=== PATIENT | female | born 1965 | race Caucasian/White ===

== ENCOUNTER 2022-08-19 14:02 | Outpatient (CLI) | payer BC, SELFPAY ==
[2022-08-19 21:34] LABS: Albumin* 4.6 g/dL (3.3-5.0)
[2022-08-19 21:35] LABS: Chloride* 99 mmol/L (96-114); Potassium* 4.2 mmol/L (3.6-5.1); Sodium* 137 mmol/L (135-149)
[2022-08-19 21:37] LABS: Bilirubin Total* 0.3 mg/dL (0.1-1.5); Cholesterol* 264 mg/dL (90-199); Creatinine* 0.8 mg/dL (0.5-1.5); Estimated Glomerular Filt Rate 86 ml/min
[2022-08-19 21:38] LABS: Alanine Aminotransferase* 19 U/L (4-35); Alkaline Phosphatase* 132 U/L (40-150); Aspartate Amino Transferase* 25 U/L (12-35); Blood Urea Nitrogen* 26 mg/dL (7-30); Calcium* 9.9 mg/dL (8.4-10.6); Carbon Dioxide* 30 mmol/L (20-32); Glucose* 108 mg/dL (60-115); Total Protein* 7.6 g/dL (6.0-8.3); Triglycerides* 106 mg/dL (40-149)
[2022-08-19 21:39] LABS: HDL Cholesterol* 106 mg/dL (>=50); LDL Cholesterol Calculated 137 mg/dL (<100)
== END 2022-08-19 14:03 | disposition home or self-care (01) ==
PROVIDERS: PCP Family Medicine; Visit Provider Family Medicine
DX: I10 Essential (primary) hypertension (principal); I16.0 Hypertensive urgency; E78.5 Hyperlipidemia, unspecified; F32.A Depression, unspecified; R73.9 Hyperglycemia, unspecified
CPT/HCPCS: 80053; 80061; 83036; 84443

== ENCOUNTER 2022-11-04 10:11 | Outpatient (CLI) | payer BC, SELFPAY ==
--- NOTE | 2022-11-04 10:15 | CRLHL7_ITS ---
For Patients: As a result of the Century Cures Act, medical imaging exams and procedure reports are released immediately into your electronic medical record. You may view this report before your referring provider. If you have questions, please contact your health care provider. BILATERAL SCREENING MAMMOGRAM WITH COMPUTER-AIDED DETECTION AND TOMOSYNTHESIS TECHNIQUE: CC and MLO views were obtained. These mammographic images have been obtained using full-field digital technique. These mammographic images were interpreted with the benefit of computer-aided detection. Breast Tomosynthesis was used in this interpretation. COMPARISON FILM: 05/22/21, 09/25/18. FINDINGS: The breasts are heterogeneously dense, which may obscure small masses IMPRESSION: There is no radiographic evidence for malignancy. ASSESSMENT: BI-RADS Category 1: Negative RECOMMENDATION: Routine screening mammogram in 1 year. A lay language report of this examination will be provided to the patient. Stef Barfield M.D. Diagnostic Radiologist [email or web address] LEONARD/Dictated by: Stef Barfield MD @ 11/05/2022 11:36:00 AM (Electronically Signed)
== END 2022-11-04 10:12 | disposition home or self-care (01) ==
LOC: MAMMO 10:12
PROVIDERS: PCP Family Medicine; Visit Provider Family Medicine
DX: Z12.31 Encounter for screening mammogram for malignant neoplasm of breast (principal); R92.2 Inconclusive mammogram
CPT/HCPCS: 77063; 77067

== ENCOUNTER 2023-06-21 07:04 | Outpatient (CLI) | payer BC, SELFPAY ==
[2023-06-22 19:23] LABS: EBV Antibody-Early (D)Ag IgG >150.0 U/mL (0.0-10.9)
== END 2023-06-21 07:05 | disposition home or self-care (01) ==
PROVIDERS: PCP Family Medicine; Visit Provider Family Medicine
DX: R06.01 Orthopnea (principal); R53.83 Other fatigue
CPT/HCPCS: 83880; 85379; 86663

== ENCOUNTER 2023-06-21 09:05 | Inpatient (IN) | payer BC, SELFPAY ==
[2023-06-21] VITALS (37 sets, daily range): BP systolic 106–179; BP diastolic 37–114; PULSE 80–126; RESP 16–26; TEMP 36.4–37.2; O2SAT 85–97; BMI 43.5; BMI 45.4
--- NOTE | 2023-06-21 09:10 | ED.GENADULT ---
HPI - General Adult General Time Seen by Provider: 09:11 Date Seen: 06/21/23 Chief complaint: Arrhythmia/Palpitations Stated complaint: Afib Time Seen by Provider: 06/21/23 09:09 History of Present Illness HPI narrative: This is a very pleasant 57-year-old female with a history of hypertension (on amlodipine), peripheral edema ongoing for about 9 months, obesity, who is referred from the [facility] for new diagnosis of atrial fibrillation with rapid ventricular response. Per the patient she recently had a trip to [place] and back. She went there to help a friend who was injured. She was feeling pretty well in [place] but after she got home she began to feel symptomatic. She has been having shortness of breath and dyspnea on exertion. Sometimes also orthopnea. She has had a mild cough, most notably triggered when she tries to walk too fast or when she laughs. Cough is nonproductive. She is not febrile. No other illness symptoms such as nasal congestion, sore throat. She is a nonsmoker. She has no history of asthma or COPD. She was at a campfire last weekend with her friends and had a bad coughing spell when she laughs so she tried to use her friend's inhaler and it might have helped a little bit. She has chronic bilateral lower extremity edema that is not worse than normal lately. No chest pains. No definite palpitations. Perhaps she may been having mild palpitations for the past couple of weeks but she does not really feel them. No hemoptysis. No known sick exposures. She had a virtual visit with Dr. Coffey yesterday and was given a prescription for an inhaler. She has been using that with perhaps some marginal improvement. She had an in-person visit with Dr. Coffey this morning, see clinic notes below. She is chronically on amlodipine for her high blood pressure. She attributes her lower extremity edema to that and her doctor is going to be changing her to a new medication. She is also on metoprolol 50 mg daily for blood pressure. No changes in that lately. No history of DVT or PE. Per notes from clinic this morning: Patient presented with orthopnea, shortness of breath, and cough. She has never had a fever during this period of time but did travel recently to [place]. His symptoms began around that time. She has significant exertional dyspnea and extreme laughing can cause her to be so short of breath she necessitated emergent use of another friend's inhaler. She did have an albuterol inhaler which maybe helped a little bit last night, so when I saw her virtually I did prescribe a new albuterol inhaler. This did trigger additional coughing but then seemed to open up her airways. She woke up this morning and was significantly tachycardic and took another dose of the albuterol inhaler. She also notes significant swelling. This has been ongoing for about 9 months. She attributes that to the amlodipine 3 weeks of orthopnea, exertional dyspnea and coughing. She has a hx of a pulmonary nodule and HTN and recently traveled to [place], when sx started. She has a history of sinus bradycardia but today was found to be in AFib. It is unclear to me if she was kicked into AFib after starting the albuterol last night this morning, or if she has been in AFib for the duration of the 3 weeks of her symptoms. Therefore, she would not be a candidate for cardioversion. However, given the significant orthopnea and dyspnea we did obtain a chest x-ray which has not yet been formally read by radiologist, but my interpretation was: No obvious consolidation, slightly prominent vasculature, slightly enlarged cardiac silhouette, sharp costophrenic angles. The EKG was also read by me and demonstrated obvious AFib with RVR, the rate was somewhere between 121 and 126, there does seem to be a left axis deviation, and computer also read a nonspecific T-wave abnormality. For lab work, I obtained a BNP given the pedal edema and orthopnea, a CBC which demonstrated no evidence of infection, and EBV due to the fatigue, and a D-dimer. The D-dimer has not yet returned and given the recent travel in [facility], I am significantly concerned for a pulmonary embolism. Could consider a TSH as well as it might have precipitated the episode. However, given the numerous unknowns and patient is symptomatic tachycardia currently will refer patient down to the emergency department. I did talk to the ED physician. I will start her on Eliquis and will place a referral for Cardiology for outpatient follow-up. Patient did have some pedal edema that was significant for the past 9 months Labs from clinic showed a WBC of 7.8, hemoglobin 12.8, platelet count 289, D-dimer, BNP, EBV levels are pending. Related Data Home Medications Medication Instructions Recorded Confirmed fluticasone propionate 50 1 spray intranasal DAILY PRN 06/21/23 06/21/23 mcg/actuation nasal spray,suspension (Flonase Allergy Relief) losartan 50 mg tablet 50 mg PO DAILY 06/21/23 06/21/23 trazodone 50 mg tablet 50 - 100 mg PO DAILY PRN insomnia 06/21/23 06/21/23 Previous Rx's Medication Instructions Recorded hydrochlorothiazide 25 mg tablet 25 mg PO QAM #90 tabs 08/19/22 desvenlafaxine succinate 100 mg 100 mg PO QDAY #90 tabs 12/20/22 tablet,extended release 24 hr metoprolol succinate 50 mg 50 mg PO QDAY #90 tabs 12/20/22 tablet,extended release 24 hr hydroxyzine HCl 25 mg tablet 25 mg PO TID PRN anxiety #90 tabs 05/05/23 albuterol sulfate 90 mcg/actuation 2 inh inhalation Q4-6H PRN 06/20/23 breath activated powder inhaler shortness of breath or wheezing #1 ea apixaban 5 mg tablet (Eliquis) 5 mg PO BID #60 tabs 06/21/23 furosemide 20 mg tablet (Lasix) 20 mg PO QAM #10 tabs 06/21/23 Allergies Allergy/AdvReac Type Severity Reaction Status Date / Time lisinopril Allergy Severe Anaphylaxis Verified 06/21/23 07:08 Penicillins Allergy Intermediate RASH Verified 06/21/23 07:08 dust mites Allergy itching Uncoded 06/21/23 07:08 and other mold Allergy itching Uncoded 06/21/23 07:08 and other [facility] Medical History (Updated 06/21/23 @ 16:04 by Juan Cerna MD) Strep pharyngitis ?J02.0 - Streptococcal pharyngitis (ICD-10) Sinus bradycardia ?R00.1 - Bradycardia, unspecified (ICD-10) Allergic rhinitis ?J30.9 - Allergic rhinitis, unspecified (ICD-10) Hx of solitary pulmonary nodule ?Z87.898 - Personal history of other specified conditions (ICD-10) Hyperlipidemia ?E78.5 - Hyperlipidemia, unspecified (ICD-10) Hyperglycemia ?R73.9 - Hyperglycemia, unspecified (ICD-10) Hx of basal cell carcinoma ?Z85.828 - Personal history of other malignant neoplasm of skin (ICD-10) Depression ?F32.A - Depression, unspecified (ICD-10) HTN (hypertension) ?I10 - Essential (primary) hypertension (ICD-10) Surgical History (Updated 08/17/22 @ 15:12 by Racheal Germain) H/O tubal ligation ?Z98.51 - Tubal ligation status (ICD-10) History of cholecystectomy ?Z90.49 - Acquired absence of other specified parts of digestive tract (ICD-10) History of arthrodesis ?Z98.1 - Arthrodesis status (ICD-10) Hx of rotator cuff surgery ?Z98.890 - Other specified postprocedural states (ICD-10) Hx of hysterectomy ?Z90.710 - Acquired absence of both cervix and uterus (ICD-10) Social History Smoking Status: Former smoker Little interest or pleasure in doing things: several days Feeling down, depressed, or hopeless: not at all Exam Narrative: Exam Narrative: Constitutional: Appears well-developed and well-nourished. Heavyset. Alert. Conversant. Non toxic. HENT: Head: Atraumatic. Nose: Nose normal. Mouth/Throat: Oral mucosa is clear and moist. no trismus. Pharynx normal. Tonsils symmetric. No tonsillar enlargement, erythema, or exudate. Eyes: Conjunctivae normal. EOM normal. Pupils equal, round, and reactive to light. No scleral icterus. Neck: Normal range of motion. Neck supple. No tracheal deviation present. No thyromegaly Cardiovascular: Irregularly irregular and tachycardic. No gallop. No friction rub. No murmur heard. Symmetric radial and PT artery pulses . No JVD Pulmonary/Chest: Effort normal. No stridor. No respiratory distress. No wheezes. No rales. No rhonchi . No tenderness. Abdominal: Soft. Bowel sounds normal. No distension. No mass. No tenderness. No rebound. No guarding. Musculoskeletal: RUE: Normal range of motion. No tenderness. No deformity LUE: Normal range of motion. No tenderness. No deformity RLE: Normal range of motion. Trace edema. No tenderness. No deformity LLE: Normal range of motion. Trace edema. No tenderness. No deformity Lymph: No cervical adenopathy. Neurological: Alert and oriented to person, place, and time. Normal strength. CN II-VII intact. No sensory deficit. GCS eye subscore is 4. GCS verbal subscore is 5. GCS motor subscore is 6. Normal coordination Skin: Skin is warm and dry. No rash noted. No pallor. Normal capillary refill. Psychiatric: Normal mood. Normal affect. Const: Vital Signs, click to edit/add: Vital Signs - 24 hr 06/21/23 09:18 06/21/23 10:20 06/21/23 10:32 Temperature 97.6 F Pulse Rate Pulse Rate [Right Pulse Oximeter] 126 H 98 Respiratory Rate 26 H 16 Blood Pressure 113/68 Blood Pressure [Ri ght Upper Arm] 114/88 111/37 L Pulse Oximetry [facility] 06/21/23 10:45 06/21/23 11:00 06/21/23 11:02 Temperature Pulse Rate 86 92 81 Pulse Rate [Right Pulse Oximeter] Respiratory Rate Blood Pressure 119/85 Blood Pressure [Ri ght Upper Arm] Pulse Oximetry 96 94 93 [facility] 06/21/23 11:15 06/21/23 11:53 06/21/23 12:02 Temperature Pulse Rate 94 Pulse Rate [Right Pulse Oximeter] Respiratory Rate Blood Pressure 125/100 H 127/114 H Blood Pressure [Ri ght Upper Arm] Pulse Oximetry 95 [facility] 06/[facility]/23 12:32 06/21/23 12:59 06/21/23 13:00 Temperature Pulse Rate 89 107 H Pulse Rate [Right Pulse Oximeter] Respiratory Rate Blood Pressure 127/89 Blood Pressure [Ri ght Upper Arm] Pulse Oximetry 95 94 [facility] 06/21/23 13:01 06/21/23 13:15 06/21/23 13:30 Temperature Pulse Rate 94 92 92 Pulse Rate [Right Pulse Oximeter] Respiratory Rate Blood Pressure 121/57 L Blood Pressure [Ri ght Upper Arm] Pulse Oximetry 93 93 90 [facility] 06/[facility]/23 13:32 06/21/23 13:45 06/21/23 14:00 Temperature Pulse Rate 87 87 81 Pulse Rate [Right Pulse Oximeter] Respiratory Rate Blood Pressure 115/88 Blood Pressure [Ri ght Upper Arm] Pulse Oximetry 90 97 94 Oxygen Delivery Me thod 06/21/23 14:01 06/21/23 14:15 06/21/23 14:37 Temperature Pulse Rate 80 94 96 Pulse Rate [Right Pulse Oximeter] Respiratory Rate Blood Pressure 127/93 H Blood Pressure [Ri ght Upper Arm] Pulse Oximetry 96 94 96 Oxygen Delivery Ca thod 06/21/23 14:45 06/21/23 15:00 06/21/23 15:02 Temperature Pulse Rate 90 80 Pulse Rate [Right Pulse Oximeter] Respiratory Rate Blood Pressure 117/77 Blood Pressure [Ri ght Upper Arm] Pulse Oximetry 97 94 87 L Oxygen Delivery Ca thod 06/21/23 15:15 06/21/23 15:30 06/21/23 15:32 Temperature Pulse Rate 81 86 90 Pulse Rate [Right Pulse Oximeter] Respiratory Rate Blood Pressure 117/92 H Blood Pressure [Ri ght Upper Arm] Pulse Oximetry 90 93 85 L Oxygen Delivery Ca thod 06/21/23 15:46 06/21/23 15:47 06/21/23 16:00 Temperature Pulse Rate 100 100 82 Pulse Rate [Right Pulse Oximeter] Respiratory Rate Blood Pressure 124/110 H Blood Pressure [Ri ght Upper Arm] Pulse Oximetry 94 90 93 Oxygen Delivery Ca thod 06/21/23 16:01 Temperature Pulse Rate 101 H Pulse Rate [Right Pulse Oximeter] Respiratory Rate Blood Pressure 106/82 Blood Pressure [Ri ght Upper Arm] Pulse Oximetry 91 Oxygen Delivery Ca thod Course Vital Signs Vital signs: Initial Vital Signs Temperature 97.6 F 06/21/23 09:18 Temperature Source Temporal Artery Scan 06/21/23 09:18 Pulse Rate 126 H 06/21/23 09:18 Respiratory Rate 26 H 06/21/23 09:18 Blood Pressure 114/88 06/21/23 09:18 Blood Pressure Mean 96 06/21/23 09:18 Blood Pressure Position Sitting 06/21/23 09:18 Pulse Oximetry 97 06/21/23 09:18 Oxygen Delivery Method Room Air 06/21/23 09:18 Vital Signs Temperature 97.6 F 06/21/23 09:18 Pulse Rate 126 H 06/21/23 09:18 Respiratory Rate 26 H 06/21/23 09:18 Blood Pressure 114/88 06/21/23 09:18 Pulse Oximetry 97 06/21/23 09:18 Oxygen Delivery Method Room Air 06/21/23 09:18 Temperature 97.6 F 06/21/23 09:18 Pulse Rate 101 H 06/21/23 16:01 Respiratory Rate 16 06/21/23 10:20 Blood Pressure 106/82 06/21/23 16:01 Pulse Oximetry 91 06/21/23 16:01 Oxygen Delivery Method Room Air 06/21/23 09:18 Medical Decision Making MDM Narrative Medical decision making narrative: This is a very pleasant 57-year-old female was transferred to the ER today from her doctor's office for evaluation of new diagnosis of atrial fibrillation. She has also had shortness of breath, orthopnea, dyspnea on exertion concerning for CHF for the past couple of weeks. She has already received outpatient albuterol inhalers, without any clear improvement. She is not having any wheezing or bronchospasm on her exam today. In terms of her atrial fibrillation. She presents with AFib with RVR. She does not really feel the palpitations so time of onset is unclear. She has never had a diagnosis before. Clinically I suspect she has probably been in fib for the past couple of weeks. Would not be safe to cardiovert without a clear time of onset. Chads Vasc score is 2. She has not been on anticoagulation yet, but her primary care provider did send in a prescription for Eliquis to her pharmacy for her this morning. We opted for rate control. She received 20 mg of IV diltiazem here in the ER with good improvement in her rate. 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 However she had recurrent AFib with RVR and received a 2nd dose of IV diltiazem. This again is controlled her rate down to average about 100 beats per minute. She is hemodynamically stable after the diltiazem. Workup was undertaken for causes of the AFib. Free T4 is normal. Electrolytes normal. No sign of cardiac ischemia. Consider PE, She has an abnormal D-dimer which prompted consideration chest CT which is negative for PE. CT scan does show evidence for cardiomegaly and mild CHF. She is not hypoxic or might currently hypertensive. Suspect that CHF is likely being triggered by the atrial fib and the RPR. She does have signs of fluid overload with peripheral edema and pulmonary vascular congestion on her chest x-ray. Lasix administered. Although she is not hypoxic or in distress, given the combination of rapid ventricular response with new diagnosis of CHF, we feel the patient would benefit from hospitalization for heart rate monitoring, diuresis, and careful cardiac monitoring. Patient is agreeable. She will be admitted by the hospitalist service, Dr. Kan Lab Data Labs: Lab Results 06/21/23 Range/Units 09:58 Sodium 139 (135-149) mmol/L Potassium 3.8 (3.6-5.1) mmol/L Chloride 100 (96-114) mmol/L Carbon Dioxide 30 (20-32) mmol/L BUN 12 (7-30) mg/dL Creatinine 0.6 (0.5-1.5) mg/dL Estimated Creat Clear 79.00 Estimated GFR 105 ml/min Glucose 107 (60-115) mg/dL Calcium 9.5 (8.4-10.6) mg/dL Troponin I < 0.01 L (0.01-0.04) ng/mL TSH 4.650 H (0.270-4.200) uIU/mL Free T4 1.39 (0.70-1.85) ng/dL Imaging Data CT scan - chest: Radiologist's impression: IMPRESSION: 1. There is no indication of acute pulmonary embolus. 2. Enlarged heart. 3. Findings consistent with mild pulmonary edema. Minimal basilar atelectasis and very small bilateral effusions. Discharge Plan Discharge Clinical Impression: CHF (congestive heart failure), Atrial fibrillation with rapid ventricular response Patient Disposition: Admitted As Observation
[2023-06-21] MEDS: 0.9 % SODIUM CHLORIDE 1000 ml 1,000 ML IV (10:00)
[2023-06-21] MEDS: dilTIAZem 5 MG/ML inj 20 MG IVP (10:00)
[2023-06-21 10:42] LABS: Chloride* 100 mmol/L (96-114); Potassium* 3.8 mmol/L (3.6-5.1); Sodium* 139 mmol/L (135-149)
[2023-06-21 10:45] LABS: Blood Urea Nitrogen* 12 mg/dL (7-30); Carbon Dioxide* 30 mmol/L (20-32); Creatinine* 0.6 mg/dL (0.5-1.5); Estimated Glomerular Filt Rate 105 ml/min
[2023-06-21 10:46] LABS: Calcium* 9.5 mg/dL (8.4-10.6); Glucose* 107 mg/dL (60-115)
[2023-06-21 10:59] LABS: Troponin I* < 0.01 ng/mL (0.01-0.04)
[2023-06-21 11:48] LABS: Free T4 Free Thyroxine* 1.39 ng/dL (0.70-1.85)
[2023-06-21] MEDS: dilTIAZem 120 MG CAP.ER.24H PO (11:54)
--- NOTE | 2023-06-21 12:11 | CRLHL7_ITS ---
For Patients: As a result of the Century Cures Act, medical imaging exams and procedure reports are released immediately into your electronic medical record. You may view this report before your referring provider. If you have questions, please contact your health care provider. INDICATION: Dyspnea. Travel. Elevated D-dimer. COMPARISON: A chest radiograph from earlier June 21, 2023 TECHNIQUE: : CT examination of the chest was performed with the uneventful intravenous administration of 95 cc of Isovue 370 while thin axial sections were obtained from above the apices of the lungs to the lung bases. Please note that all CT scans at this facility use dose modulation, iterative reconstruction, and/or weight-based dosing when appropriate to reduce radiation dose to as low as reasonably achievable. FINDINGS: : HEART and MEDIASTINUM: Mildly enlarged heart. Mildly prominent mediastinal lymph nodes probably reactive. Small pericardial effusion. Small hiatal hernia. PULMONARY ARTERIAL CIRCULATION: There is no visible intraluminal filling defect to suggest pulmonary embolus. LUNGS: Thickening of the interlobular septa, Kimberly B lines and patchy ground-glass consistent with pulmonary edema. Minimal patchy atelectasis at the bases PLEURAL SPACES: Very small bilateral effusions VISUALIZED UPPER ABDOMEN: Enlarged fatty infiltrated liver. Status post cholecystectomy. Otherwise, the limited visualized upper abdominal structures appear normal. OSSEOUS STRUCTURES: Age-appropriate appearance. No acute fracture or destructive process. TUBES and LINES: None. IMPRESSION: 1. There is no indication of acute pulmonary embolus. 2. Enlarged heart. 3. Findings consistent with mild pulmonary edema. Minimal basilar atelectasis and very small bilateral effusions. Please note that all CT scans at this facility use dose modulation, iterative reconstruction, and/or weight-based dosing when appropriate to reduce radiation dose to as low as reasonably achievable. Dictated by Marlon Holt MD @ 06/21/2023 1:47:08 PM (Electronically Signed)
[2023-06-21] MEDS: dilTIAZem 5 MG/ML inj 10 MG IVP (13:47)
--- NOTE | 2023-06-21 14:56 | P.IMHP_ITS ---
Hospitalist- H&P: HPI History of Present Illness Date Seen: 06/21/23 Chief complaint: Afib Narrative: Kathia Ventura is a 57 year old female with PMhx notd below including hx of HTN, HLD, depression presenting from clinic for evaluation of new onset Afib w/RVR. The patient presented to clinic with complaints of increased lower extremity edema, sob, mild cough, palpitations. Endorses orthopnea. She recently flew to [place] has endorsed fatigue for 1-2 weeks. She currently is chest pain free. She presented to ED where she was noted to be in Afib w/RVR. CT PE study was negative for PE but did show cardiomegaly, mild pulmonary edema and small bilateral effusions. She was given 40 mg IV lasix and diltiazem and admitted for further evaluation. Per patient she was to be started on eliquis for mgmt of Afib by PCP at today's visit but had to be sent to ED ct pe 1. There is no indication of acute pulmonary embolus. 2. Enlarged heart. 3. Findings consistent with mild pulmonary edema. Minimal basilar atelectasis and very small bilateral effusions. [facility] Medical History (Updated 06/21/23 @ 16:04 by Juan Cerna MD) Strep pharyngitis ?J02.0 - Streptococcal pharyngitis (ICD-10) Sinus bradycardia ?R00.1 - Bradycardia, unspecified (ICD-10) Allergic rhinitis ?J30.9 - Allergic rhinitis, unspecified (ICD-10) Hx of solitary pulmonary nodule ?Z87.898 - Personal history of other specified conditions (ICD-10) Hyperlipidemia ?E78.5 - Hyperlipidemia, unspecified (ICD-10) Hyperglycemia ?R73.9 - Hyperglycemia, unspecified (ICD-10) Hx of basal cell carcinoma ?Z85.828 - Personal history of other malignant neoplasm of skin (ICD-10) Depression ?F32.A - Depression, unspecified (ICD-10) HTN (hypertension) ?I10 - Essential (primary) hypertension (ICD-10) Surgical History (Updated 08/17/22 @ 15:12 by Racheal Germain) H/O tubal ligation ?Z98.51 - Tubal ligation status (ICD-10) History of cholecystectomy ?Z90.49 - Acquired absence of other specified parts of digestive tract (ICD- 10) History of arthrodesis ?Z98.1 - Arthrodesis status (ICD-10) Hx of rotator cuff surgery ?Z98.890 - Other specified postprocedural states (ICD-10) Hx of hysterectomy ?Z90.710 - Acquired absence of both cervix and uterus (ICD-10) Social History Smoking Status: Former smoker Little interest or pleasure in doing things: several days Feeling down, depressed, or hopeless: not at all Meds Home Medications and Allergies Home Medications Medication Instructions Recorded Confirmed Type fluticasone propionate 50 1 spray intranasal DAILY PRN 06/21/23 06/21/23 History mcg/actuation nasal spray,suspension (Flonase Allergy Relief) losartan 50 mg tablet 50 mg PO DAILY 06/21/23 06/21/23 History trazodone 50 mg tablet 50 - 100 mg PO DAILY PRN insomnia 06/21/23 06/21/23 History Allergies Allergy/AdvReac Type Severity Reaction Status Date / Time lisinopril Allergy Severe Anaphylaxis Verified 06/21/23 07:08 Penicillins Allergy Intermediate RASH Verified 06/21/23 07:08 dust mites Allergy itching Uncoded 06/21/23 07:08 and other mold Allergy itching Uncoded 06/21/23 07:08 and other Exam Narrative: Exam Narrative: Gen: no acute distress HEENT: NCAT EOMI mmm Neck: Supple CV: Tachy, IRIR normal s1 s2 Lungs: bibasilar crackles Abd: Soft,nt, nd Neuro: Alert, oriented, CN grossly intact; nonfocal screening?exam Psych: appropriate affect MSK: age appropriate muscle mass Skin; Warm, dry no rash on face ext: 2+ bl LE edema Const: Vital Signs, click to edit/add: Vital Signs - 24 hr 06/21/23 09:18 06/21/23 10:20 06/21/23 10:32 Temperature 97.6 F Pulse Rate Pulse Rate [Right Pulse Oximeter] 126 H 98 Respiratory Rate 26 H 16 Blood Pressure 113/68 Blood Pressure [Ri ght Upper Arm] 114/88 111/37 L Pulse Oximetry 97 Oxygen Delivery Me thod Room Air 06/21/23 10:45 06/21/23 11:00 06/21/23 11:02 Temperature Pulse Rate 86 92 81 Pulse Rate [Right Pulse Oximeter] Respiratory Rate Blood Pressure 119/85 Blood Pressure [Ri ght Upper Arm] Pulse Oximetry 96 94 93 Oxygen Delivery Me thod 06/21/23 11:15 06/21/23 11:53 06/21/23 12:02 Temperature Pulse Rate 94 Pulse Rate [Right Pulse Oximeter] Respiratory Rate Blood Pressure 125/100 H 127/114 H Blood Pressure [Ri ght Upper Arm] Pulse Oximetry 95 Oxygen Delivery Me thod 06/21/23 12:32 06/21/23 12:59 06/21/23 13:00 Temperature Pulse Rate 89 107 H Pulse Rate [Right Pulse Oximeter] Respiratory Rate Blood Pressure 127/89 Blood Pressure [Ri ght Upper Arm] Pulse Oximetry 95 94 Oxygen Delivery Me thod 06/21/23 13:01 06/21/23 13:15 06/21/23 13:30 Temperature Pulse Rate 94 92 92 Pulse Rate [Right Pulse Oximeter] Respiratory Rate Blood Pressure 121/57 L Blood Pressure [Ri ght Upper Arm] Pulse Oximetry 93 93 90 Oxygen Delivery Me thod 06/21/23 13:32 06/21/23 13:45 Temperature Pulse Rate 87 87 Pulse Rate [Right Pulse Oximeter] Respiratory Rate Blood Pressure 115/88 Blood Pressure [Ri ght Upper Arm] Pulse Oximetry 90 97 Oxygen Delivery Me thod Hospitalist - H&P: Result Labs Labs: [facility] 06/21/23 09:58 Sodium 139 Potassium 3.8 Chloride 100 Carbon Dioxide 30 BUN 12 Creatinine 0.6 Glucose 107 Calcium 9.5 Cardiac Enzymes 06/21/23 Range/Units 09:58 Troponin I < 0.01 L (0.01-0.04) ng/mL Assessment and Plan Assessment and plan (1) New onset a-fib: Status: Acute (2) Hyperlipidemia: Status: Acute (3) Depression: Status: Acute (4) HTN (hypertension): Status: Acute Plan Kathia Ventura is a 57 year old female with PMhx notd below including hx of HTN, HLD, depression presenting from clinic for evaluation of new onset Afib w/RVR. The patient presented to clinic with complaints of increased lower extremity edema, sob, mild cough, palpitations. Endorses orthopnea. She recently flew to [place] has endorsed fatigue for 1-2 weeks. She currently is chest pain free. She presented to ED where she was noted to be in Afib w/RVR. CT PE study was negative for PE but did show cardiomegaly, mild pulmonary edema and small bilateral effusions. She was given 40 mg IV lasix and diltiazem and admitted for further evaluation. Per patient she was to be started on eliquis for mgmt of Afib by PCP at today's visit but had to be sent to ED 1. New onset afib w/RVR; given several doses of diltiazem with refractory RVR 2. Suspected acute decompensated CHF exacerbation; baseline EF unknown 3. Hx of Depression 4. Hx of HTN Plan -admit to CCU -diltiazem infusion -rate control with metoprolol -IV lasix -daily weight -low sodium diet -monitor I&O -Echo -initiate eliquis -check thyroid studies Code-Full DVT ppx-eliquis
[2023-06-21] MEDS: FUROSEMIDE 10 MG/ML inj 40 MG IVP (15:50)
[2023-06-21] MEDS: dilTIAZem HCL 125 MG in 0.9 % SODIUM CHLORIDE 100 ml 100 ML IVPB (15:55)
--- NOTE | 2023-06-21 17:33 | PC.NURSE ---
Addendum entered by Nataly Baker RN 06/21/23 17:45: Addendum entered @ 1744 written on wrong patient. Addendum entered by Nataly Baker RN 06/21/23 17:44: around 1230 patient c/o seeing stars and dizziness after using BSC, when asked if this has happened before stated she usually only has this symptom with migraines. Patient still c/o headache at end of blood transfusion, set of neuros performed and appear baseline. Ice pack placed over neck/base of head per patients request for neck pain/headache. Original Note: Shift Summary: Patient pleasant and cooperative. Tele shows a-fib with RVR, HR at rest ranging from 90s-110s, when up to bathroom goes into 130's. Denies chest pain, states she feels SOB after ambulation. Voiding large amounts frequently. Lung sounds clear, bilat pitting edema +1. Maintaining o2 sats >90% on RA.
[2023-06-21] MEDS: SODIUM CHLORIDE 0.9 % (FLUSH) 10 ML SYRINGE 5 ML IVF (20:46)
[2023-06-21] MEDS: APIXABAN 5 MG TABLET PO (20:46)
[2023-06-21] MEDS: TRAZODONE HCL 50 MG TABLET PO (23:19)
[2023-06-22] VITALS (13 sets, daily range): BP systolic 94–143; BP diastolic 63–90; PULSE 83–111; RESP 18; TEMP 36.8–37.2; O2SAT 92–96
--- NOTE | 2023-06-22 06:06 | PC.NURSE ---
[id number] Pt slept ok during night, up ind to br and back, tolerated activity well. denies SOB at rest, some sob when returning from br and positioning self into bed. denies chest pain or headache. HR <100 on dilt gtts at 5ml/hr during shift while at rest, does increase to >100 with ambulation but recovers quickly, remains in A-fib with short periods of NSR that goes back into a-fib. no N/V.
[2023-06-22 07:02] LABS: Basophils Absolute Auto 0.03 K/uL (0.00-0.30); Basophils Percent Auto 0.4 % (0.0-3.0); Eosinophils Percent Auto 4.5 % (0.0-7.0); Hematocrit 38.3 % (33.0-51.0); Hemoglobin* 12.3 gm/dL (12.0-16.0); Immature Granulocytes Abs Auto 0.01 K/uL (0.00-0.30); Immature Granulocytes Pct Auto 0.1 %; Lymphocytes Percent Auto 22.5 % (20-44); Mean Corpuscular HGB Conc 32 gm/dL (32-36); Mean Corpuscular Hemoglobin 29 pg (26-34); Mean Corpuscular Volume 91 fL (80-100); Monocytes Percent Auto 6.6 % (0.0-11.0); Neutrophils Absolute Auto 4.39 K/uL (1.7-7.0); Neutrophils Percent Auto 65.9 % (42.0-72.0); Platelet Count* 277 K/uL (140-440); RDW Coefficient of Variation % 15.2 % (11.5-15.5); Red Blood Count 4.19 m/uL (4.00-5.20); White Blood Count* 6.67 K/uL (4.50-11.00)
[2023-06-22 07:12] LABS: Slide Review Reflex No
[2023-06-22 07:15] LABS: Albumin* 4.1 g/dL (3.3-5.0); Chloride* 99 mmol/L (96-114)
[2023-06-22 07:16] LABS: Potassium* 3.3 mmol/L (3.6-5.1); Sodium* 137 mmol/L (135-149)
[2023-06-22 07:18] LABS: Alkaline Phosphatase* 102 U/L (40-150); Aspartate Amino Transferase* 31 U/L (12-35); Bilirubin Total* 1.1 mg/dL (0.1-1.5); Blood Urea Nitrogen* 10 mg/dL (7-30); Carbon Dioxide* 31 mmol/L (20-32); Creatinine* 0.6 mg/dL (0.5-1.5); Estimated Glomerular Filt Rate 105 ml/min; Total Protein* 7.1 g/dL (6.0-8.3)
[2023-06-22 07:19] LABS: Alanine Aminotransferase* 31 U/L (4-35); Calcium* 9.1 mg/dL (8.4-10.6); Glucose* 102 mg/dL (60-115)
[2023-06-22] MEDS: DESVENLAFAXINE SUCCINATE ER 50 MG TAB 100 MG PO (09:27)
[2023-06-22] MEDS: METOPROLOL SUCCINATE (XL) 50 MG TAB PO ×2 (09:28→14:59)
[2023-06-22] MEDS: FUROSEMIDE 10 MG/ML inj 40 MG IVP ×2 (09:28→16:48)
[2023-06-22] MEDS: APIXABAN 5 MG TABLET PO ×2 (09:28→21:04)
[2023-06-22] MEDS: SODIUM CHLORIDE 0.9 % (FLUSH) 10 ML SYRINGE 5 ML IVF ×3 (09:29→21:04)
[2023-06-22] MEDS: POTASSIUM CHLORIDE 10 MEQ CAPSULE ER 40 MEQ PO (09:29)
--- NOTE | 2023-06-22 09:35 | NUTR.NU ---
RDN with nutrition screen for 2 gram sodium diet. Nutrition education provided on a low sodium diet related to congestive heart failure and HTN.? Verbal and written information provided. Recommend limiting sodium to 2,000 mg per day.? Discussed foods recommended and to avoid.? Handouts provided from [facility] on heart failure nutrition therapy, sodium content of foods, heart healthy label reading tips, sodium-free flavoring tips and heart healthy cooking and shopping tips.? Patient verbalized understanding.?? RDN's contact information was provided and patient was encouraged to call with questions.?Per nursing charting, patient has been consuming 100% of meals recorded. Current weight at 235lbs 06/22/23. Weight gain noted per weight hx. RDN will follow-up prn.
--- NOTE | 2023-06-22 10:11 | PM.IMPN1 ---
Progress Note: A&P Assessment and plan (1) Atrial fibrillation with rapid ventricular response: Status: Acute (2) CHF (congestive heart failure): Status: Acute (3) Depression: Status: Acute (4) HTN (hypertension): Status: Acute Plan Kathia Ventura is a 57 year old female with PMhx notd below including hx of HTN, HLD, depression presenting from clinic for evaluation of new onset Afib w/RVR. The patient presented to clinic with complaints of increased lower extremity edema, sob, mild cough, palpitations. Endorses orthopnea. She recently flew to [place] has endorsed fatigue for 1-2 weeks. She currently is chest pain free. She presented to ED where she was noted to be in Afib w/RVR. CT PE study was negative for PE but did show cardiomegaly, mild pulmonary edema and small bilateral effusions. She was given 40 mg IV lasix and diltiazem and admitted for further evaluation. Per patient she was to be started on eliquis for mgmt of Afib by PCP at today's visit but had to be sent to ED 1. New onset afib w/RVR; given several doses of diltiazem with refractory RVR 2. Suspected acute decompensated CHF exacerbation; baseline EF unknown 3. Hx of Depression 4. Hx of HTN Plan -continue diltiazem infusion goal HR<100 -rate control with metoprolol -Metoprolol XL 50 mg will increase to 100 mg XL for tomorrow -IV lasix 40 mg BID -daily weight -low sodium diet -monitor I&O -Echo -initiated eliquis on 06/21 Code-Full DVT ppx-eliquis Dispo-likely home 2 days following diuresis and rate control Subjective Date Seen: 06/22/23 Interval history: patient denies chest pain SOB improving diuresing well; weight down about 4 pounds continues to be on diltiazem infusion; HR upto 130s with activity Exam Narrative: Exam Narrative: Gen: no acute distress HEENT: NCAT EOMI mmm CV: tachycadic, IRIR normal s1 s2 Lungs: CTAB Abd: Soft,nt, nd Neuro: Alert, oriented, CN grossly intact; nonfocal screening?exam Psych: appropriate affect MSK: age appropriate muscle mass Ext: 2+ bl LE edema Const: Vital Signs, click to edit/add: Vital Signs - 24 hr 06/21/23 10:20 06/21/23 10:32 06/21/23 10:45 Temperature Pulse Rate 86 Pulse Rate [Left P ulse Oximeter] Pulse Rate [Right Pulse Oximeter] 98 Respiratory Rate 16 Blood Pressure 113/68 Blood Pressure [Le ft Arm] Blood Pressure [Ri ght Upper Arm] 111/37 L Pulse Oximetry 96 Oxygen Delivery Mt thod 06/21/23 11:00 06/21/23 11:02 06/21/23 11:15 Temperature Pulse Rate 92 81 94 Pulse Rate [Left P ulse Oximeter] Pulse Rate [Right Pulse Oximeter] Respiratory Rate Blood Pressure 119/85 Blood Pressure [Le ft Arm] Blood Pressure [Ri ght Upper Arm] Pulse Oximetry 94 93 95 Oxygen Delivery Mt thod 06/21/23 11:53 06/21/23 12:02 06/21/23 12:32 Temperature Pulse Rate Pulse Rate [Left P ulse Oximeter] Pulse Rate [Right Pulse Oximeter] Respiratory Rate Blood Pressure 125/100 H 127/114 H 127/89 Blood Pressure [Le ft Arm] Blood Pressure [Ri ght Upper Arm] Pulse Oximetry Oxygen Delivery Mt thod 06/21/23 12:59 06/21/23 13:00 06/21/23 13:01 Temperature Pulse Rate 89 107 H 94 Pulse Rate [Left P ulse Oximeter] Pulse Rate [Right Pulse Oximeter] Respiratory Rate Blood Pressure 121/57 L Blood Pressure [Le ft Arm] Blood Pressure [Ri ght Upper Arm] Pulse Oximetry 95 94 93 Oxygen Delivery Mt thod 06/21/23 13:15 06/21/23 13:30 06/21/23 13:32 Temperature Pulse Rate 92 92 87 Pulse Rate [Left P ulse Oximeter] Pulse Rate [Right Pulse Oximeter] Respiratory Rate Blood Pressure 115/88 Blood Pressure [Le ft Arm] Blood Pressure [Ri ght Upper Arm] Pulse Oximetry 93 90 90 Oxygen Delivery Mt thod 06/21/23 13:45 06/21/23 14:00 06/21/23 14:01 Temperature Pulse Rate 87 81 80 Pulse Rate [Left P ulse Oximeter] Pulse Rate [Right Pulse Oximeter] Respiratory Rate Blood Pressure 127/93 H Blood Pressure [Le ft Arm] Blood Pressure [Ri ght Upper Arm] Pulse Oximetry 97 94 96 Oxygen Delivery Mt thod 06/21/23 14:15 06/21/23 14:37 06/21/23 14:45 Temperature Pulse Rate 94 96 Pulse Rate [Left P ulse Oximeter] Pulse Rate [Right Pulse Oximeter] Respiratory Rate Blood Pressure Blood Pressure [Le ft Arm] Blood Pressure [Ri ght Upper Arm] Pulse Oximetry 94 96 97 Oxygen Delivery Me od 06/21/23 15:00 06/21/23 15:02 06/21/23 15:15 Temperature Pulse Rate 90 80 81 Pulse Rate [Left P ulse Oximeter] Pulse Rate [Right Pulse Oximeter] Respiratory Rate Blood Pressure 117/77 Blood Pressure [Le ft Arm] Blood Pressure [Ri ght Upper Arm] Pulse Oximetry 94 87 L [facility] 06[facility]23 15:30 06/21/23 15:32 06/21/23 15:46 Temperature Pulse Rate 86 90 100 Pulse Rate [Left P ulse Oximeter] Pulse Rate [Right Pulse Oximeter] Respiratory Rate Blood Pressure 117/92 H Blood Pressure [Le ft Arm] Blood Pressure [Ri ght Upper Arm] Pulse Oximetry 93 85 L 94 [facility] 06/21/23 15:47 06/21/23 16:00 06/21/23 16:01 Temperature Pulse Rate 100 82 101 H Pulse Rate [Left P ulse Oximeter] Pulse Rate [Right Pulse Oximeter] Respiratory Rate Blood Pressure 124/110 H 106/82 Blood Pressure [Le ft Arm] Blood Pressure [Ri ght Upper Arm] Pulse Oximetry 90 93 91 [facility] 06/21/23 16:55 06/21/23 16:55 06/21/23 19:00 Temperature 98 F 98.2 F Pulse Rate 101 H Pulse Rate [Left P ulse Oximeter] 94 88 Pulse Rate [Right Pulse Oximeter] Respiratory Rate 20 18 Blood Pressure Blood Pressure [Le ft Arm] 179/99 H 134/84 Blood Pressure [Ri ght Upper Arm] Pulse Oximetry 95 96 [facility] Room Air 06/21/23 21:00 06/21/23 22:22 06/21/23 22:59 Temperature 98.2 F 98.9 F Pulse Rate Pulse Rate [Left P ulse Oximeter] 93 91 91 Pulse Rate [Right Pulse Oximeter] Respiratory Rate 18 18 18 Blood Pressure Blood Pressure [Le ft Arm] 107/86 117/91 H Blood Pressure [Ri ght Upper Arm] Pulse Oximetry 96 93 Oxygen Delivery Me thod Room Air Room Air 06/21/23 23:06 06/22/23 01:15 06/22/23 03:00 Temperature 98.8 F 98.9 F Pulse Rate 91 Pulse Rate [Left P ulse Oximeter] 91 83 Pulse Rate [Right Pulse Oximeter] Respiratory Rate 18 18 Blood Pressure Blood Pressure [Le ft Arm] 98/68 107/90 H Blood Pressure [Ri ght Upper Arm] Pulse Oximetry 93 92 Oxygen Delivery Me thod Room Air Room Air 06/22/23 06:00 06/22/23 07:56 06/22/23 08:00 Temperature 98.5 F 98.2 F Pulse Rate 86 Pulse Rate [Left P ulse Oximeter] 88 88 Pulse Rate [Right Pulse Oximeter] Respiratory Rate 18 18 Blood Pressure Blood Pressure [Le ft Arm] 122/71 104/72 Blood Pressure [Ri ght Upper Arm] Pulse Oximetry 95 96 Oxygen Delivery Me thod Room Air Room Air 06/22/23 08:00 06/22/23 09:30 Temperature Pulse Rate Pulse Rate [Left P ulse Oximeter] 88 97 Pulse Rate [Right Pulse Oximeter] Respiratory Rate 18 Blood Pressure Blood Pressure [Le ft Arm] 106/67 Blood Pressure [Ri ght Upper Arm] Pulse Oximetry Oxygen Delivery Me thod Labs Labs: Laboratory Results - last 24 hr 06/21/23 06/22/23 09:58 06:43 WBC 6.67 RBC 4.19 Hgb 12.3 Hct 38.3 MCV 91 MCH 29 MCHC 32 RDW Coeff of Glenn 15.2 Plt Count 277 Neut % (Auto) 65.9 Lymph % (Auto) 22.5 [place] % (Auto) 6.6 Eos % (Auto) 4.5 Baso % (Auto) 0.4 Neut # (Auto) 4.39 Lymph # (Auto) 1.50 [place] # (Auto) 0.40 Eos # (Auto) 0.30 Baso # (Auto) 0.03 Abs Immat Gran (auto) 0.01 Imm/Tot Granulo (auto) 0.1 Sodium 139 137 Potassium 3.8 3.3 L Chloride 100 99 Carbon Dioxide 30 31 BUN 12 10 Creatinine 0.6 0.6 Estimated Creat Clear 79.00 79.00 Estimated GFR 105 105 Glucose 107 102 Calcium 9.5 9.1 Magnesium 2.0 Total Bilirubin 1.1 AST 31 ALT 31 Alkaline Phosphatase 102 Troponin I < 0.01 L Total Protein 7.1 Albumin 4.1 TSH 4.650 H 4.520 H Free T4 1.39
[2023-06-22] MEDS: POTASSIUM CHLORIDE 10 MEQ CAPSULE ER 20 MEQ PO (17:52)
--- NOTE | 2023-06-22 18:19 | PC.NURSE ---
Tele showing Afib with rate 70-90's this AM and rate increased to 100-130's with activity. Patient denied chest pain but does report SOB after exertion. Pitting edema to bilateral feet. Denies pain or N/V. Tolerating regular diet. Consumer Affairs Director provided education on low sodium diet. ECHO completed. Diltiazem drip DC'd at 1500 and additional Metoprolol Succinate 50mg PO administered. Patient remains in Afib with rate 80-90's at rest and 100-120's with activity. Patient did request Lasix IV scheduled at 2100 to be administered early. Discussed with MD and time changed to 1700.
[2023-06-22] MEDS: METOPROLOL TARTRATE 1 MG/ML inj 5 MG IVP (19:12)
--- NOTE | 2023-06-22 19:21 | PC.NURSE ---
Patient frequently up to bathroom following evening Lasixx
--- NOTE | 2023-06-22 19:22 | PC.NURSE ---
Patient up frequently to bathroom following evening Lasix administration. Patient's heart rate currently remaining 100's at rest and increasing up to 140's with exertion. BP at 1845 143/81 and Metoprolol 5mg IV PRN administered.
[2023-06-22] MEDS: TRAZODONE HCL 50 MG TABLET PO (21:03)
[2023-06-22] MEDS: ACETAMINOPHEN 325 MG TABLET 650 MG PO (21:04)
[2023-06-23 02:45] VITALS: BP 110/95; PULSE 73; RESP 18; TEMP 36.9; O2SAT 96
--- NOTE | 2023-06-23 06:15 | PC.NURSE ---
Shift note: Telemetry reading continue to be in A.fib but asymptomatic. HR has been between 77 and 107. No PRN metoprolol given. Pt denied SOB, cough, and chest pain. Able to maintain O2>90 on room air throughout the night. Independent in room, pedal edema noted in both legs. Pt had adequate sleep tonight.
[2023-06-23 06:39] LABS: Basophils Absolute Auto 0.02 K/uL (0.00-0.30); Basophils Percent Auto 0.3 % (0.0-3.0); Eosinophils Absolute Auto 0.25 K/uL (0.00-0.50); Eosinophils Percent Auto 3.9 % (0.0-7.0); Hematocrit 42.8 % (33.0-51.0); Hemoglobin* 13.5 gm/dL (12.0-16.0); Immature Granulocytes Abs Auto 0.02 K/uL (0.00-0.30); Immature Granulocytes Pct Auto 0.3 %; Lymphocytes Absolute Auto 1.59 K/uL (0.90-2.90); Lymphocytes Percent Auto 24.7 % (20-44); Mean Corpuscular HGB Conc 32 gm/dL (32-36); Mean Corpuscular Hemoglobin 29 pg (26-34); Mean Corpuscular Volume 93 fL (80-100); Monocytes Percent Auto 8.1 % (0.0-11.0); Neutrophils Absolute Auto 4.04 K/uL (1.7-7.0); Neutrophils Percent Auto 62.7 % (42.0-72.0); Platelet Count* 287 K/uL (140-440); RDW Coefficient of Variation % 14.9 % (11.5-15.5); Red Blood Count 4.61 m/uL (4.00-5.20); White Blood Count* 6.44 K/uL (4.50-11.00)
[2023-06-23 06:47] LABS: Slide Review Reflex No
[2023-06-23 07:00] VITALS: BP 116/87; PULSE 90; PULSE 95; RESP 16; TEMP 36.7; O2SAT 94
[2023-06-23 07:02] LABS: Chloride* 102 mmol/L (96-114); Potassium* 3.5 mmol/L (3.6-5.1); Sodium* 138 mmol/L (135-149)
[2023-06-23 07:05] LABS: Blood Urea Nitrogen* 12 mg/dL (7-30); Calcium* 8.7 mg/dL (8.4-10.6); Carbon Dioxide* 28 mmol/L (20-32); Creatinine* 0.5 mg/dL (0.5-1.5); Estimated Glomerular Filt Rate 110 ml/min; Glucose* 100 mg/dL (60-115); Magnesium* 2.1 mg/dL (1.5-2.6)
[2023-06-23] MEDS: ACETAMINOPHEN 325 MG TABLET 650 MG PO ×2 (07:55→21:17)
[2023-06-23] MEDS: POTASSIUM CHLORIDE 10 MEQ CAPSULE ER 20 MEQ PO ×2 (08:28→17:23)
[2023-06-23] MEDS: APIXABAN 5 MG TABLET PO ×2 (08:29→21:17)
[2023-06-23] MEDS: DESVENLAFAXINE SUCCINATE ER 50 MG TAB 100 MG PO (08:30)
[2023-06-23] MEDS: METOPROLOL SUCCINATE (XL) 100 MG TAB PO (08:31)
[2023-06-23] MEDS: FUROSEMIDE 10 MG/ML inj 40 MG IVP ×2 (09:11→16:45)
--- NOTE | 2023-06-23 10:15 | PM.IMPN1 ---
Progress Note: A&P Assessment and plan (1) CHF (congestive heart failure): Problem details: Acute systolic CHF exacerbation; Echo with EF 40% Status: Acute (2) Atrial fibrillation with rapid ventricular response: Status: Acute (3) Hyperlipidemia: Status: Acute (4) HTN (hypertension): Status: Acute (5) Depression: Status: Acute (6) Insomnia: Status: Acute Plan Kathia Ventura is a 57 year old female with PMhx notd below including hx of HTN, HLD, depression presenting from clinic for evaluation of new onset Afib w/RVR. The patient presented to clinic with complaints of increased lower extremity edema, sob, mild cough, palpitations. Endorses orthopnea. She recently flew to [place] has endorsed fatigue for 1-2 weeks. She currently is chest pain free. She presented to ED where she was noted to be in Afib w/RVR. CT PE study was negative for PE but did show cardiomegaly, mild pulmonary edema and small bilateral effusions. She was given 40 mg IV lasix and diltiazem and admitted for further evaluation. Per patient she was to be started on eliquis for mgmt of Afib by PCP at today's visit but had to be sent to ED 1. New onset afib w/RVR; given several doses of diltiazem with refractory RVR in ED 2. Acute Systolic CHF exacerbation; EF 40% weight trending down from 109Kg to 104kg 3. Hx of Depression 4. Hx of HTN Plan -weaned off diltiazem infusion -rate control with metoprolol -Metoprolol XL increased 50 mg to 100 mg XL (06/23) -continue IV lasix 40 mg BID -daily weight -low sodium diet -monitor I&O -Echo completed on 06/22 -initiated eliquis on 06/21 -initiate low dose losartan prior to DC (patient states allergic to ACEi) Code-Full DVT ppx-eliquis Dispo-likely home 1-2 days following diuresis Subjective Date Seen: 06/23/23 Interval history: continues to diurese well weght trending down from 109Kg to 104kg SOb improving denies chest pain weaned off diltiazem infusion Echo with EF 40% Exam Narrative: Exam Narrative: Gen: no acute distress HEENT: NCAT EOMI mmm Neck: Supple CV: RRR normal s1 s2 Lungs: diminshed/crackles Abd: Soft,nt, nd Neuro: Alert, oriented, CN grossly intact; nonfocal screening?exam Psych: appropriate affect MSK: age appropriate muscle mass Ext: 2+ BL LE edema Const: Vital Signs, click to edit/add: Vital Signs - 24 hr 06/22/23 12:00 06/22/23 15:00 06/22/23 15:30 Temperature 98.4 F Pulse Rate 86 Pulse Rate [Left P ulse Oximeter] 84 91 Respiratory Rate 18 18 Blood Pressure [Le ft Arm] 130/66 Pulse Oximetry 94 Oxygen Delivery Me thod Room Air 06/22/23 15:30 06/22/23 16:45 06/22/23 18:45 Temperature 98.7 F Pulse Rate Pulse Rate [Left P ulse Oximeter] 94 91 111 H Respiratory Rate 18 Blood Pressure [Le ft Arm] 99/81 119/74 143/81 H Pulse Oximetry 94 Oxygen Delivery Me thod Room Air 06/22/23 19:00 06/22/23 23:00 06/22/23 23:00 Temperature 98.3 F Pulse Rate 92 Pulse Rate [Left P ulse Oximeter] 107 H 85 Respiratory Rate 18 18 Blood Pressure [Le ft Arm] 110/67 Pulse Oximetry 94 Oxygen Delivery Me thod Room Air 06/22/23 23:00 06/23/23 02:45 06/23/23 07:00 Temperature 98.7 F 98.4 F 98.0 F Pulse Rate Pulse Rate [Left P ulse Oximeter] 85 73 95 Respiratory Rate 18 18 16 Blood Pressure [Le ft Arm] 94/63 110/95 H 116/87 Pulse Oximetry 93 96 94 Oxygen Delivery Me thod Room Air Room Air Room Air 06/23/23 07:00 06/23/23 07:00 Temperature Pulse Rate 90 Pulse Rate [Left P ulse Oximeter] Respiratory Rate 16 Blood Pressure [Le ft Arm] Pulse Oximetry Oxygen Delivery Me thod Labs Labs: Laboratory Results - last 24 hr 06/23/23 06:14 WBC 6.44 RBC 4.61 Hgb 13.5 Hct 42.8 MCV 93 MCH 29 MCHC 32 RDW Coeff of Glenn 14.9 Plt Count 287 Neut % (Auto) 62.7 Lymph % (Auto) 24.7 [place] % (Auto) 8.1 Eos % (Auto) 3.9 Baso % (Auto) 0.3 Neut # (Auto) 4.04 Lymph # (Auto) 1.59 [place] # (Auto) 0.50 Eos # (Auto) 0.25 Baso # (Auto) 0.02 Abs Immat Gran (auto) 0.02 Imm/Tot Granulo (auto) 0.3 Sodium 138 Potassium 3.5 L Chloride 102 Carbon Dioxide 28 BUN 12 Creatinine 0.5 Estimated Creat Clear 94.80 Estimated GFR 110 Glucose 100 Calcium 8.7 Magnesium 2.1
[2023-06-23 11:00] VITALS: BP 105/76; PULSE 96; RESP 18; TEMP 36.5; O2SAT 93
[2023-06-23] MEDS: SODIUM CHLORIDE 0.9 % (FLUSH) 10 ML SYRINGE 5 ML IVF ×4 (11:22→21:17)
[2023-06-23] MEDS: LORazepam 2 MG/ML inj 0.5 MG IVP ×2 (11:27→21:17)
--- NOTE | 2023-06-23 15:12 | PC.NURSE ---
Patient ambulated in her room independently. Toilets self. Good urine output. Requested PRN Tylenol at 0800 for headache which was effective. Pt reported increased anxiety. Per pt was taking Vistaril PRN prior to admission. MD ordered PRN Ativan due to current diuretic. PRN Ativan given. Pt reports was effective and slept afterwards. Denies chest pain and SOB.
[2023-06-23 16:30] VITALS: BP 116/84; PULSE 111; PULSE 85; RESP 18; TEMP 36.6; O2SAT 92
[2023-06-23 19:00] VITALS: BP 115/88; PULSE 85; RESP 16; TEMP 36.8; O2SAT 95
[2023-06-24 00:40] VITALS: BP 116/79; PULSE 73; PULSE 90; RESP 16; TEMP 36.8; O2SAT 94
[2023-06-24 04:15] VITALS: BP 111/81; PULSE 96; RESP 14; TEMP 36.9; O2SAT 93
[2023-06-24 06:59] LABS: Basophils Absolute Auto 0.02 K/uL (0.00-0.30); Basophils Percent Auto 0.3 % (0.0-3.0); Eosinophils Absolute Auto 0.27 K/uL (0.00-0.50); Eosinophils Percent Auto 3.9 % (0.0-7.0); Hematocrit 43.6 % (33.0-51.0); Immature Granulocytes Abs Auto 0.01 K/uL (0.00-0.30); Immature Granulocytes Pct Auto 0.1 %; Lymphocytes Percent Auto 25.7 % (20-44); Mean Corpuscular HGB Conc 32 gm/dL (32-36); Mean Corpuscular Hemoglobin 30 pg (26-34); Mean Corpuscular Volume 92 fL (80-100); Monocytes Percent Auto 7.9 % (0.0-11.0); Neutrophils Absolute Auto 4.35 K/uL (1.7-7.0); Neutrophils Percent Auto 62.1 % (42.0-72.0); Platelet Count* 312 K/uL (140-440); RDW Coefficient of Variation % 14.6 % (11.5-15.5); Red Blood Count 4.75 m/uL (4.00-5.20)
[2023-06-24 07:00] VITALS: BP 105/61; PULSE 104; PULSE 93; RESP 14; TEMP 36.6; O2SAT 93
[2023-06-24 07:14] LABS: Chloride* 101 mmol/L (96-114); Potassium* 3.8 mmol/L (3.6-5.1); Sodium* 138 mmol/L (135-149)
[2023-06-24 07:17] LABS: Creatinine* 0.5 mg/dL (0.5-1.5); Estimated Glomerular Filt Rate 110 ml/min; Slide Review Reflex No
[2023-06-24 07:18] LABS: Blood Urea Nitrogen* 12 mg/dL (7-30); Calcium* 8.8 mg/dL (8.4-10.6); Carbon Dioxide* 28 mmol/L (20-32); Glucose* 95 mg/dL (60-115); Magnesium* 2.1 mg/dL (1.5-2.6)
--- NOTE | 2023-06-24 07:29 | PC.NURSE ---
Pt is alert and oriented x3. Afebrile. Pt denies pain, chest pain, SOB, and N/V. Pt is tolerating a regular diet and voiding. Tele was a-fib with normal ventricular rate. Pt is up ad arlette in room. Pt slept throughout most of night. ?
[2023-06-24] MEDS: POTASSIUM CHLORIDE 10 MEQ CAPSULE ER 20 MEQ PO (10:49)
[2023-06-24] MEDS: METOPROLOL SUCCINATE (XL) 100 MG TAB PO (10:50)
[2023-06-24] MEDS: LOSARTAN POTASSIUM 50 MG TABLET 12.5 MG PO (10:51)
[2023-06-24] MEDS: APIXABAN 5 MG TABLET PO (10:51)
[2023-06-24] MEDS: DESVENLAFAXINE SUCCINATE ER 50 MG TAB 100 MG PO (10:52)
[2023-06-24] MEDS: FUROSEMIDE 40 MG TABLET PO (10:56)
[2023-06-24] MEDS: ACETAMINOPHEN 325 MG TABLET 650 MG PO (11:06)
--- NOTE | 2023-06-28 12:09 | PM.DS1 ---
DS: Providers Provider Time Seen by Provider: 09:00 Date Seen: 06/24/23 Date of admission: 06/21/23 14:54 Primary care physician: Kathia Coffey MD Admitting Clinician: Chris Kan MD Attending Physician on discharge: Dennis Stock MD Date of Discharge: 06/24/23 DS: Diagnosis Discharge Diagnosis (1) Atrial fibrillation with rapid ventricular response: Status: Acute (2) New onset a-fib: Status: Acute (3) CHF (congestive heart failure): Status: Acute Problem details: Acute systolic CHF exacerbation; Echo with EF 40% (4) Orthopnea: Status: Acute (5) Tachycardia-induced cardiomyopathy: Status: Acute (6) Chronic anxiety: Status: Acute DS: Summary Hospital Course Hospital Course: Kathia Ventura is a 57 year old female with PMhx notd below including hx of HTN, HLD, depression presenting from clinic for evaluation of new onset Afib w/RVR. The patient presented to clinic with complaints of increased lower extremity edema, sob, mild cough, palpitations. Endorses orthopnea. She recently flew to [place] has endorsed fatigue for 1-2 weeks. She currently is chest pain free. She presented to ED where she was noted to be in Afib w/RVR. CT PE study was negative for PE but did show cardiomegaly, mild pulmonary edema and small bilateral effusions. She was given 40 mg IV lasix and diltiazem and admitted for further evaluation. Per patient she was to be started on eliquis for mgmt of Afib by PCP at today's visit but had to be sent to ED ct pe 1. There is no indication of acute pulmonary embolus. 2. Enlarged heart. 3. Findings consistent with mild pulmonary edema. Minimal basilar atelectasis and very small bilateral effusions. Rate control achieved with diltiazem IV drip and later switched to oral metoprolol and oral diltiazem. Patient diuresed a total of 6.3 kilos or 13.9 lb during the course of hospitalization. On date of discharge we switched her to oral furosemide. Admission weight was 108.9 kg. Weight on discharge 102.3 kg. TSH during the course hospitalization was obtaining was 4.6. This may require additional follow-up. Discharge plans as specified below. Status at Discharge Functional status at discharge: independent ambulation Overall status at discharge: patient is back to baseline Time Spent with Patient Time attestation: Total time spent providing and/or coordinating discharge services: Time spent: Greater than 30 minutes Exam Narrative: Exam Narrative: Weight on date of discharge is 102.3 kg. Const: Vital Signs, click to edit/add: Patient examined in her hospital room. Vision and hearing are grossly intact. Alert and oriented to self, place, time, situation. Friendly, cooperative, articulate. Mood and affect are congruent. Does not have jugular venous distension but does have hepatojugular reflux in the sitting upright position. Trace edema bilateral lower extremities. Lungs clear to auscultation. Heart tones chaotic rhythm. Abdomen benign. Independent transfer, station, and gait. No tremor, asterixis, or ataxia. DS: Data Imaging Echo: Radiologist's impression: Transthoracic echocardiogram: Unremarkable save atrial fibrillation with rate controlled and ejection fraction is low at approximately 40%. Discharge Plan Discharge Disposition: Home, Self-Care Date of Admission: 06/21/23 14:54 Attending Provider on Discharge: Dennis Stock Primary Care Provider: Kathia Coffey Condition: Improved Anticipated Discharge Date/Time: 06/24/23 12:30 Discharge Medications: New furosemide 40 mg Tablet 40 mg PO DAILY@0800 30 Days Qty: 30 0RF acetaminophen 325 mg Tablet 650 mg PO Q6H PRNQty: 100 0RF potassium chloride 10 mEq Capsule, Extended Release 20 meq PO DAILYWM 30 Days Qty: 30 0RF metoprolol succinate 100 mg Tablet Extended Release 24 Hr 100 mg PO DAILY 30 Days Qty: 30 0RF losartan 25 mg tablet 12.5 mg PO DAILY Qty: 15 2RF hydroxyzine HCl 25 mg tablet 25 mg PO TID PRNQty: 30 0RF Rx Instructions: PRN anxiety Continued albuterol sulfate 90 mcg/actuation aerosol powdr breath activated 2 inh inhalation Q4-6H PRN (Reason: shortness of breath or wheezing) Qty: 1 1RF Eliquis 5 mg tablet 5 mg PO BID Qty: 60 1RF trazodone 50 mg tablet 50 - 100 mg PO DAILY PRN (Reason: insomnia) fluticasone propionate [Flonase Allergy Relief] 50 mcg/actuation spray,suspension 1 spray intranasal DAILY PRN Rx Instructions: administer into each nostril desvenlafaxine succinate 100 mg tablet extended release 24 hr 100 mg PO QDAY Qty: 90 3RF Discontinued hydrochlorothiazide 25 mg tablet 25 mg PO QAM Qty: 90 3RF furosemide [Lasix] 20 mg tablet 20 mg PO QAM Qty: 10 0RF losartan 50 mg tablet 50 mg PO DAILY metoprolol succinate 50 mg tablet extended release 24 hr 50 mg PO QDAY Qty: 90 3RF hydroxyzine HCl 25 mg tablet 25 mg PO TID PRN (Reason: anxiety) Qty: 90 3RF Discharge Orders: Discharge Order (Routine); Ordered 06/24/23 Ordered By: Dennis Stock Patient Education: Metoprolol (By mouth), Furosemide (By mouth), Acetaminophen (By mouth), Potassium Chloride (By mouth), Losartan (By mouth), Heart Failure (DC), A-fib (Atrial Fibrillation) (DC) Additional Instructions: 1. Follow-up with Dr. Kathia Coffey MD, or one of her partners, on Tuesday, regarding heart failure; 2. 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 May return to work with no restrictions or limitations on Tuesday, unless otherwise directed by your primary care connector. Activity Level: No Restrictions and Activity as Tolerated Discharge Diet: Heart Healthy (2 gm sodium, low fat) Follow Up Appointments: Mario Alexandra [Staff Physician] - 08/05/23 2:00 pm (This appointment is at the [facility], in [place].) Kathia Coffey MD [Primary Care Provider] - 06/27/23 2:15 pm ([facility] for follow-up.) Forms: [employer] Info Instructions
== END 2023-06-24 14:01 | disposition home or self-care (01) | DRG 201 ==
LOC: ED 16:04 → MEDSURG 06-24 10:28
PROVIDERS: Admitting Provider Hospitalist; Emergency Provider Emergency Medicine; PCP Family Medicine; Visit Provider Hospitalist
DX: I48.91 Unspecified atrial fibrillation (principal); I50.21 Acute systolic (congestive) heart failure; I11.0 Hypertensive heart disease with heart failure; I43 Cardiomyopathy in diseases classified elsewhere; E66.9 Obesity, unspecified; F32.A Depression, unspecified; G47.00 Insomnia, unspecified; E78.5 Hyperlipidemia, unspecified; Z85.828 Personal history of other malignant neoplasm of skin; F41.9 Anxiety disorder, unspecified
CPT/HCPCS: 36415; 71275; 80048; 80053; 83735; 83880; 84439; 84443; 84484; 85025; 85379; 93306; 99284; 99285; A9270; J1940; J2060; J3490; J7030; Q9967

== ENCOUNTER 2023-10-20 16:22 | Outpatient (CLI) | payer BC, SELFPAY | END 2023-10-20 16:23 | disposition home or self-care (01) | PROVIDERS: PCP Family Medicine; Visit Provider Family Medicine | DX: Z00.00 Encounter for general adult medical examination without abnormal findings (principal); R79.89 Other specified abnormal findings of blood chemistry; E78.5 Hyperlipidemia, unspecified; R73.9 Hyperglycemia, unspecified; I10 Essential (primary) hypertension | CPT/HCPCS: 80061; 84443 ==

== ENCOUNTER 2024-01-03 20:28 | Emergency (ER) | payer BC, SELFPAY ==
[2024-01-03] VITALS (20 sets, daily range): BP systolic 113–138; BP diastolic 69–95; PULSE 73–108; RESP 12–32; TEMP 36.4; O2SAT 93–98; BMI 42.5
[2024-01-03 21:01] LABS: Appearance Urine Clear (Clear); Bilirubin Urine Negative (Negative); Blood Urine Negative (Negative); Color Urine Yellow (Yellow); Glucose Urine Negative (Negative); Ketones Urine Negative (Negative); Leukocyte Esterase Urine Negative (Negative); Nitrite Urine Negative (Negative); Protein Urine Negative (Negative); Urobilinogen Urine 0.2 (0.2-1.0); pH Urine 6.5 (5.0-8.5)
--- NOTE | 2024-01-03 21:06 | ED_ITS ---
HPI - Arrhythmia/Palpitations General Chief Complaint: Arrhythmia/Palpitations <Tha Delgado MD - Last Filed: 01/03/24 22:12> Stated Complaint: triage nurse ref for possible A-FIB <Tha Delgado MD - Last Filed: 01/03/24 22:12> Time Seen by Provider: 01/03/24 20:51 <Tha Delgado MD - Last Filed: 01/03/24 22:12> History of Present Illness HPI narrative: This 58-year-old female comes in reporting rapid heart rate. She has a history of paroxysmal atrial fibrillation and was cardioverted about 6 months ago. At that time she was started on Eliquis and metoprolol in continues to take these medications. She states that she noted her heart going rather fast about 3 hours prior to arrival. She does not report any chest pain, lightheadedness, shortness of breath, or diaphoresis. She arrives here in atrial fibrillation with a heart rate around 130 beats per minute. <Tha Delgado MD - Last Filed: 01/03/24 22:12> Related Data Home Medications: Home Medications Medication Instructions Recorded Confirmed fluticasone propionate 50 1 spray intranasal DAILY PRN 06/21/23 10/20/23 mcg/actuation nasal spray,suspension (Flonase Allergy Relief) Previous Rx's Medication Instructions Recorded albuterol sulfate 90 mcg/actuation 2 inh inhalation Q4-6H PRN 06/20/23 breath activated powder inhaler shortness of breath or wheezing #1 ea acetaminophen 325 mg tablet 650 mg (2 x 325 mg) PO Q6H PRN 06/24/23 #100 tabs apixaban 5 mg tablet (Eliquis) 5 mg PO BID #180 tabs 08/18/23 trazodone 50 mg tablet 50 - 100 mg (1 - 2 x 50 mg) PO 09/01/23 DAILY PRN for insomnia #180 tabs desvenlafaxine succinate 100 mg 100 mg PO QDAY #90 tabs 10/20/23 tablet,extended release 24 hr furosemide 40 mg tablet 40 mg PO BID PRN edema #30 tabs 10/20/23 hydroxyzine HCl 25 mg tablet 25 mg PO TID PRN anxiety #30 tabs 10/20/23 losartan 25 mg tablet 25 mg PO DAILY #90 tabs 10/20/23 metoprolol succinate 50 mg 50 mg PO QDAY #90 tabs 10/20/23 tablet,extended release 24 hr (Toprol XL) <Tha Delgado MD - Last Filed: 01/03/24 22:12> Allergies/Adverse Reactions: Allergies Allergy/AdvReac Type Severity Reaction Status Date / Time lisinopril Allergy Severe Anaphylaxis Verified 10/20/23 15:54 Penicillins Allergy Intermediate RASH Verified 10/20/23 15:54 mold Allergy Verified 10/20/23 15:54 <Tha Delgado MD - Last Filed: 01/03/24 22:12> Review of Systems Status of ROS: Reports: 10 or more systems reviewed and unremarkable except as noted in History and below <Tha Delgado MD - Last Filed: 01/03/24 22:12> Narrative: Constitutional: No fevers, no weight gain or loss. Eyes: No discharge. No vision changes. HENT: No congestion, no sore throat, no ear pain. Cardiovascular: No chest pain . Rapid heart rate. Respiratory: No shortness of breath, no wheezes, no cough. Gastrointestinal: No abdominal pain, no vomiting, no diarrhea. Genitourinary: No dysuria, no hematuria. Musculoskeletal: Normal range of motion. Skin: No rashes, no pruritis. Neurological: No dizziness, weakness, sensory change, speech change. Endo/Heme/Allergies: No bruising or bleeding. No polydipsia. Pysch: no suicidality, no anxiety, no insomnia. All other systems reviewed and are negative. <Tha Delgado MD - Last Filed: 01/03/24 22:12> [facility] Medical History: Medical History (Updated 01/03/24 @ 21:27 by Tha Delgado MD) Sinus bradycardia ?R00.1 - Bradycardia, unspecified (ICD-10) Hx of solitary pulmonary nodule ?Z87.898 - Personal history of other specified conditions (ICD-10) Hx of basal cell carcinoma ?Z85.828 - Personal history of other malignant neoplasm of skin (ICD-10) Hypertensive urgency ?I16.0 - Hypertensive urgency (ICD-10) <Tha Delgado MD - Last Filed: 01/03/24 22:12> Surgical History: Surgical History (Updated 10/20/23 @ 16:49 by Kathia Coffey MD) H/O tubal ligation ?Z98.51 - Tubal ligation status (ICD-10) History of cholecystectomy ?Z90.49 - Acquired absence of other specified parts of digestive tract (ICD- 10) History of arthrodesis ?Z98.1 - Arthrodesis status (ICD-10) Hx of rotator cuff surgery ?Z98.890 - Other specified postprocedural states (ICD-10) Hx of hysterectomy ?Z90.710 - Acquired absence of both cervix and uterus (ICD-10) <Tha Delgado MD - Last Filed: 01/03/24 22:12> Social History: Social History What is your current living situation?: I presently have a place to live Problems where you live: no known problems Problems where you live details: N/A In the past 12 months, utilities in danger of being shut off: no In past 12 months, lack of transportation kept you from medical appts, meetings, work, or getting things needed for daily living: no In the past 12 mos, have been you worried that your food would run out before you had money to buy more?: never true In the past 12 mos, the food you bought just didn't last and you didn't have money to buy more?: never true Highest level of school completed/degree received: Master's degree Smoking Status: Never smoker Second hand tobacco smoke exposure: No How often do you have a drink containing alcohol: 2-3 times a week Alcohol type: wine How often do you have six or more drinks on one occasion: Never AUDIT-C Alcohol total score: 3 Non-prescribed substance use: marijuana (any form) Non-prescribed substance use details: Vape pen, hasnt used yet Caffeine: No How often does anyone, including family, friends and others, physically hurt you : never How often does anyone, including family, friends and others, insult or talk down to you: never How often does anyone, including family, friends and others, threaten you with harm: never How often does anyone, including family, friends and others, scream or curse at you: never Little interest or pleasure in doing things: not at all Feeling down, depressed, or hopeless: several days service: No <Tha Delgado MD - Last Filed: 01/03/24 22:12> Exam Narrative: Exam Narrative: Constitutional: Well-developed, well-nourished, no acute distress. HEENT: Normocephalic, atraumatic. Neck: Normal range of motion. Nontender. Supple. Heart: Irregular. No murmurs. Tachycardia. Intact distal pulses. Lungs: Clear to auscultation. No chest discomfort. No wheezes, rhonchi, or rales. Abdomen: Normal bowel sounds. Nontender. No rebound tenderness. Genitalia: Deferred. Back: No midline tenderness. Normal range of motion. Extremities: Normal range of motion. No injury. Skin: Intact. No rash. Warm. No erythema or pallor. Neurologic: No altered sensation. No weakness. Alert and oriented. Psychiatric: No suicidality. No anxiety or depression. No insomnia. Nursing notes and vitals signs are reviewed. <Tha Delgado MD - Last Filed: 01/03/24 22:12> Const: Vital Signs, click to edit/add: Vital Signs - 24 hr 01/03/24 20:31 01/03/24 20:53 01/03/24 20:54 Temperature 97.5 F L Pulse Rate 105 H 108 H Pulse Rate [Pulse Oximeter] 104 H Respiratory Rate 20 Blood Pressure 136/95 H Blood Pressure [Ri ght Upper Arm] 138/91 H Pulse Oximetry 97 95 93 Oxygen Delivery Me thod Room Air Oxygen Flow Rate 01/03/24 21:00 01/03/24 21:03 01/03/24 21:10 Temperature Pulse Rate 89 105 H Pulse Rate [Pulse Oximeter] Respiratory Rate Blood Pressure 119/77 Blood Pressure [Ri ght Upper Arm] Pulse Oximetry 95 97 93 Oxygen Delivery Me thod Nasal Cannula Oxygen Flow Rate 1 01/03/24 21:15 01/03/24 21:16 01/03/24 21:17 Temperature Pulse Rate 106 H 89 100 Pulse Rate [Pulse Oximeter] Respiratory Rate 12 13 18 Blood Pressure 123/90 H Blood Pressure [Ri ght Upper Arm] Pulse Oximetry 98 96 97 Oxygen Delivery Me thod Oxygen Flow Rate 01/03/24 21:22 01/03/24 21:27 01/03/24 21:30 Temperature Pulse Rate 79 76 76 Pulse Rate [Pulse Oximeter] Respiratory Rate 32 H 19 21 Blood Pressure 123/70 113/69 Blood Pressure [Ri ght Upper Arm] Pulse Oximetry 93 95 95 Oxygen Delivery Me thod Oxygen Flow Rate 01/03/24 21:32 01/03/24 21:33 01/03/24 21:45 Temperature Pulse Rate 79 78 78 Pulse Rate [Pulse Oximeter] Respiratory Rate 19 20 18 Blood Pressure 114/84 Blood Pressure [Ri ght Upper Arm] Pulse Oximetry 96 94 95 Oxygen Delivery Me thod Oxygen Flow Rate 01/03/24 21:47 01/03/24 21:48 01/03/24 22:00 Temperature Pulse Rate 73 77 73 Pulse Rate [Pulse Oximeter] Respiratory Rate 17 18 20 Blood Pressure 124/81 Blood Pressure [Ri ght Upper Arm] Pulse Oximetry 94 95 96 Oxygen Delivery Me thod Oxygen Flow Rate 01/03/24 22:02 01/03/24 22:03 Temperature Pulse Rate 73 75 Pulse Rate [Pulse Oximeter] Respiratory Rate 19 23 Blood Pressure 138/91 H Blood Pressure [Ri ght Upper Arm] Pulse Oximetry 95 95 Oxygen Delivery Me thod Oxygen Flow Rate <Tha Delgado MD - Last Filed: 01/03/24 22:12> Vital Signs, click to edit/add: Vital Signs - 24 hr 01/03/24 20:31 01/03/24 20:53 01/03/24 20:54 Temperature 97.5 F L Pulse Rate 105 H 108 H Pulse Rate [Pulse Oximeter] 104 H Respiratory Rate 20 Blood Pressure 136/95 H Blood Pressure [Ri ght Upper Arm] 138/91 H Pulse Oximetry 97 95 93 Oxygen Delivery Me thod Room Air Oxygen Flow Rate 01/03/24 21:00 01/03/24 21:03 01/03/24 21:10 Temperature Pulse Rate 89 105 H Pulse Rate [Pulse Oximeter] Respiratory Rate Blood Pressure 119/77 Blood Pressure [Ri ght Upper Arm] Pulse Oximetry 95 97 93 Oxygen Delivery Me thod Nasal Cannula Oxygen Flow Rate 1 01/03/24 21:15 01/03/24 21:16 01/03/24 21:17 Temperature Pulse Rate 106 H 89 100 Pulse Rate [Pulse Oximeter] Respiratory Rate 12 13 18 Blood Pressure 123/90 H Blood Pressure [Ri ght Upper Arm] Pulse Oximetry 98 96 97 Oxygen Delivery Me thod Oxygen Flow Rate 01/03/24 21:22 01/03/24 21:27 01/03/24 21:30 Temperature Pulse Rate 79 76 76 Pulse Rate [Pulse Oximeter] Respiratory Rate 32 H 19 21 Blood Pressure 123/70 113/69 Blood Pressure [Ri ght Upper Arm] Pulse Oximetry 93 95 95 Oxygen Delivery Me thod Oxygen Flow Rate 01/03/24 21:32 01/03/24 21:33 01/03/24 21:45 Temperature Pulse Rate 79 78 78 Pulse Rate [Pulse Oximeter] Respiratory Rate 19 20 18 Blood Pressure 114/84 Blood Pressure [Ri ght Upper Arm] Pulse Oximetry 96 94 95 Oxygen Delivery Me thod Oxygen Flow Rate 01/03/24 21:47 01/03/24 21:48 01/03/24 22:00 Temperature Pulse Rate 73 77 73 Pulse Rate [Pulse Oximeter] Respiratory Rate 17 18 20 Blood Pressure 124/81 Blood Pressure [Ri ght Upper Arm] Pulse Oximetry 94 95 96 Oxygen Delivery Me thod Oxygen Flow Rate 01/03/24 22:02 01/03/24 22:03 Temperature Pulse Rate 73 75 Pulse Rate [Pulse Oximeter] Respiratory Rate 19 23 Blood Pressure 138/91 H Blood Pressure [Ri ght Upper Arm] Pulse Oximetry 95 95 Oxygen Delivery Me thod Oxygen Flow Rate <Kathia Daniels MD - Last Filed: 01/03/24 21:22> Course Course ED Course: Dr. Delgado asked me to provide sedation for cardioversion. Please see his note for full details. Procedure note: Patient reported no previous adverse events with anesthesia. She was maintained on pulse oximetry, CO2 and cardiac monitoring. She was given propofol, 80 mg based on a weight of 102 kilos. She had good sedation with that and was cardioverted successfully with 1 shock. She did require jaw thrust for mild hypoxia with O2 sats in the 88-90 range, but she had good respiratory effort throughout and awakened without difficulty. No immediate complication. <Kathia Daniels MD - Last Filed: 01/03/24 21:22> Vital Signs Vital signs: Initial Vital Signs Temperature 97.5 F L 01/03/24 20:31 Temperature Source Temporal Artery Scan 01/03/24 20:31 Pulse Rate 104 H 01/03/24 20:31 Pulse Rhythm Irregular 01/03/24 20:31 Respiratory Rate 20 01/03/24 20:31 Blood Pressure 138/91 H 01/03/24 20:31 Blood Pressure Mean 106 H 01/03/24 20:31 Blood Pressure Position Sitting 01/03/24 20:31 Pulse Oximetry 97 01/03/24 20:31 Oxygen Delivery Method Room Air 01/03/24 20:31 Vital Signs Temperature 97.5 F L 01/03/24 20:31 Pulse Rate 104 H 01/03/24 20:31 Respiratory Rate 20 01/03/24 20:31 Blood Pressure 138/91 H 01/03/24 20:31 Pulse Oximetry 97 01/03/24 20:31 Oxygen Delivery Method Room Air 01/03/24 20:31 Temperature 97.5 F L 01/03/24 20:31 Pulse Rate 75 01/03/24 22:03 Respiratory Rate 23 01/03/24 22:03 Blood Pressure 138/91 H 01/03/24 22:02 Pulse Oximetry 95 01/03/24 22:03 Oxygen Delivery Method Nasal Cannula 01/03/24 21:10 Oxygen Flow Rate 1 01/03/24 21:10 <Tha Delgado MD - Last Filed: 01/03/24 22:12> Initial Vital Signs Temperature 97.5 F L 01/03/24 20:31 Temperature Source Temporal Artery Scan 01/03/24 20:31 Pulse Rate 104 H 01/03/24 20:31 Pulse Rhythm Irregular 01/03/24 20:31 Respiratory Rate 20 01/03/24 20:31 Blood Pressure 138/91 H 01/03/24 20:31 Blood Pressure Mean 106 H 01/03/24 20:31 Blood Pressure Position Sitting 01/03/24 20:31 Pulse Oximetry 97 01/03/24 20:31 Oxygen Delivery Method Room Air 01/03/24 20:31 Vital Signs Temperature 97.5 F L 01/03/24 20:31 Pulse Rate 104 H 01/03/24 20:31 Respiratory Rate 20 01/03/24 20:31 Blood Pressure 138/91 H 01/03/24 20:31 Pulse Oximetry 97 01/03/24 20:31 Oxygen Delivery Method Room Air 01/03/24 20:31 Temperature 97.5 F L 01/03/24 20:31 Pulse Rate 75 01/03/24 22:03 Respiratory Rate 23 01/03/24 22:03 Blood Pressure 138/91 H 01/03/24 22:02 Pulse Oximetry 95 01/03/24 22:03 Oxygen Delivery Method Nasal Cannula 01/03/24 21:10 Oxygen Flow Rate 1 01/03/24 21:10 <Kathia Daniels MD - Last Filed: 01/03/24 21:22> Medications Administered Medications: Generic Name Dose Route Start Last Admin Trade Name Freq PRN Reason Stop Dose Admin Propofol 200 mg 01/03/24 21:05 01/03/24 21:15 Propofol 10 Mg/Ml Inj IV 01/03/24 21:06 80 mg ONCE ONE Administration <Tha Delgado MD - Last Filed: 01/03/24 22:12> Generic Name Dose Route Start Last Admin Trade Name Freq PRN Reason Stop Dose Admin Propofol 200 mg 01/03/24 21:05 01/03/24 21:15 Propofol 10 Mg/Ml Inj IV 01/03/24 21:06 80 mg ONCE ONE Administration <Kathia Daniels MD - Last Filed: 01/03/24 21:22> MDM - Arrhythmia/Palpitations MDM Narrative Medical decision making narrative: This patient comes in with atrial fibrillation and rapid ventricular response. An IV was established and labs are acquired. I discussed that we typically use a medicine like Cardizem to control the rate and then consider options including cardioversion. The patient is on Eliquis for the past 6 months and is also taking metoprolol. She stated that she would prefer to be cardioverted initially rather than wait for rate control with diltiazem and possible medical cardioversion from diltiazem. After acquiring informed consent arrangements were made for cardioversion. Dr. Daniels assisted in administering propofol all at 80 mg. This brought sufficient anesthesia at which time synchronized cardioversion was completed at 150 joules of energy. This brought her back to normal sinus rhythm in the rate of about 75 beats per minute. The patient maintain sufficient ox vital signs throughout the procedure. She did benefit from some nasal cannula oxygen and for a brief time her airway was assisted with mild jaw thrust. The patient recovered normally and is doing well. The patient is okay to return home after recovery here. I advised her to continue her current medications. If symptoms are recurrent she could take an extra metoprolol tablet but should plan to come in for evaluation and treatment if symptoms are recurrent. <Tha Delgado MD - Last Filed: 01/03/24 22:12> Lab Data Labs: Lab Results 01/03/24 01/03/24 Range/Units 20:48 21:05 Urine Color Yellow (Yellow) Urine Appearance Clear (Clear) Urine pH 6.5 (5.0-8.5) Ur Specific Turner 1.010 (1.000-1.030) Urine Protein Negative (Negative) Urine Glucose (UA) Negative (Negative) Urine Ketones Negative (Negative) Urine Blood Negative (Negative) Urine Nitrite Negative (Negative) Urine Bilirubin Negative (Negative) Urine Urobilinogen 0.2 (0.2-1.0) Ur Leukocyte Esterase Negative (Negative) Urine RBC 0-2 (0-2) Urine WBC 0-2 (0-5) Ur Squamous Epith Cells None (None-Few) Urine Bacteria None (None) POC Troponin I 0.00 L (0.01-0.04) ng/ml <Tha Delgado MD - Last Filed: 01/03/24 22:12> Lab Results 01/03/24 01/03/24 Range/Units 20:48 21:05 Urine Color Yellow (Yellow) Urine Appearance Clear (Clear) Urine pH 6.5 (5.0-8.5) Ur Specific Turner 1.010 (1.000-1.030) Urine Protein Negative (Negative) Urine Glucose (UA) Negative (Negative) Urine Ketones Negative (Negative) Urine Blood Negative (Negative) Urine Nitrite Negative (Negative) Urine Bilirubin Negative (Negative) Urine Urobilinogen 0.2 (0.2-1.0) Ur Leukocyte Esterase Negative (Negative) Urine RBC 0-2 (0-2) Urine WBC 0-2 (0-5) Ur Squamous Epith Cells None (None-Few) Urine Bacteria None (None) POC Troponin I 0.00 L (0.01-0.04) ng/ml <Kathia Daniels MD - Last Filed: 01/03/24 21:22> ECG Data Attestation: I personally reviewed and interpreted this ECG as follows: <Tha Delgado MD - Last Filed: 01/03/24 22:12> Interpretation: Atrial fibrillation with rapid ventricular response. Rate is 137 beats per minute. There are no specific ST or T-wave abnormalities. Repeat EKG after cardioversion shows normal sinus rhythm at a rate of 77 beats per minute. There are no specific ST or T-wave abnormalities. <Tha Delgado MD - Last Filed: 01/03/24 22:12> Discharge Plan Discharge Clinical Impression: Atrial fibrillation with rapid ventricular response <Tha Delgado MD - Last Filed: 01/03/24 22:12> Patient Disposition: Home w/ Parent or Adult <Tha Delgado MD - Last Filed: 01/03/24 22:12> Condition: Improved <Tha Delgado MD - Last Filed: 01/03/24 22:12> Additional Instructions: Continue current medications. Resume normal activities as tolerated. Follow up with MD or return if symptoms are recurrent. <Tha Delgado MD - Last Filed: 01/03/24 22:12> Prescriptions: No Action albuterol sulfate 90 mcg/actuation aerosol powdr breath activated 2 inh inhalation Q4-6H PRN (Reason: shortness of breath or wheezing) Qty: 1 1RF desvenlafaxine succinate 100 mg tablet extended release 24 hr 100 mg PO QDAY Qty: 90 3RF furosemide 40 mg tablet 40 mg PO BID PRN (Reason: edema) Qty: 30 12RF hydroxyzine HCl 25 mg tablet 25 mg PO TID PRN (Reason: anxiety) Qty: 30 12RF Rx Instructions: PRN anxiety losartan 25 mg tablet 25 mg PO DAILY Qty: 90 3RF metoprolol succinate [Toprol XL] 50 mg tablet extended release 24 hr 50 mg PO QDAY Qty: 90 3RF fluticasone propionate [Flonase Allergy Relief] 50 mcg/actuation spray,suspension 1 spray intranasal DAILY PRN Rx Instructions: administer into each nostril acetaminophen 325 mg Tablet 650 mg PO Q6H PRNQty: 100 0RF Eliquis 5 mg tablet 5 mg PO BID Qty: 180 3RF trazodone 50 mg tablet 50 - 100 mg PO DAILY PRN (Reason: for insomnia) Qty: 180 3RF <Tha Delgado MD - Last Filed: 01/03/24 22:12> Follow Up/Referrals: Kathia Coffey MD [Primary Care Provider] - <Tha Delgado MD - Last Filed: 01/03/24 22:12> Stand Alone Forms: [facility] Info Instructions <Tha Delgado MD - Last Filed: 01/03/24 22:12>
[2024-01-03] MEDS: PROPOFOL 10 MG/ML INJ 200 MG IV (21:15)
[2024-01-03 21:27] LABS: RBC Urine 0-2 (0-2); WBC Urine 0-2 (0-5)
[2024-01-03 21:52] LABS: Basophils Absolute Auto 0.01 K/uL (0.00-0.30); Basophils Percent Auto 0.1 % (0.0-3.0); Eosinophils Absolute Auto 0.18 K/uL (0.00-0.50); Eosinophils Percent Auto 1.7 % (0.0-7.0); Hematocrit 45.1 % (33.0-51.0); Hemoglobin* 14.8 gm/dL (12.0-16.0); Immature Granulocytes Abs Auto 0.02 K/uL (0.00-0.30); Immature Granulocytes Pct Auto 0.2 %; Lymphocytes Absolute Auto 2.61 K/uL (0.90-2.90); Mean Corpuscular HGB Conc 33 gm/dL (32-36); Mean Corpuscular Hemoglobin 30 pg (26-34); Mean Corpuscular Volume 92 fL (80-100); Monocytes Percent Auto 6.5 % (0.0-11.0); Neutrophils Absolute Auto 6.96 K/uL (1.7-7.0); Neutrophils Percent Auto 66.5 % (42.0-72.0); Platelet Count* 330 K/uL (140-440); RDW Coefficient of Variation % 13.3 % (11.5-15.5); Red Blood Count 4.91 m/uL (4.00-5.20); White Blood Count* 10.46 K/uL (4.50-11.00)
[2024-01-03 22:14] LABS: Magnesium* 2.2 mg/dL (1.5-2.6)
[2024-01-03 22:16] LABS: Slide Review Reflex No
[2024-01-04 06:04] LABS: Chloride* 105 mmol/L (96-114); Potassium* 4.1 mmol/L (3.6-5.1); Sodium* 141 mmol/L (135-149)
[2024-01-04 06:06] LABS: Creatinine* 0.5 mg/dL (0.5-1.5); Est. Creatinine Clearance* 93.67; Estimated Glomerular Filt Rate 109 ml/min
[2024-01-04 06:07] LABS: Anion Gap 11 mEq/L (7-15); Blood Urea Nitrogen* 20 mg/dL (7-30); Calcium* 10.4 mg/dL (8.4-10.6); Carbon Dioxide* 25 mmol/L (20-32); Glucose* 113 mg/dL (60-115)
== END 2024-01-03 22:21 | disposition home or self-care (01) ==
LOC: ED 21:42
PROVIDERS: Emergency Provider Emergency Medicine Emergency Medical Services; PCP Family Medicine
DX: I48.20 Chronic atrial fibrillation, unspecified (principal)
CPT/HCPCS: 92960; 36415; 80048; 81001; 81003; 83735; 84484; 85025; 93005; 99156; 99285; 99291; J2704

== ENCOUNTER 2024-01-17 18:06 | Outpatient (CLI) | payer BC, SELFPAY ==
--- NOTE | 2024-01-17 18:40 | MM_ITS ---
Patient: ELIZABETH SANCHEZ Facility:?[facility] Patient ID:?[id number] Site Patient ID:?[id number]. Site :?[id number] Study:?XRay-Breast Bilateral 3D screening mammogram w/cad-01/17/2024 6:35:10 PM Ordering Physician:DEQUAN Final Report: BILATERAL SCREENING MAMMOGRAM WITH COMPUTER-AIDED DETECTION AND TOMOSYNTHESIS TECHNIQUE: CC and MLO views were obtained. These mammographic images have been obtained using full-field digital technique. These mammographic images were interpreted with the benefit of computer-aided detection. Breast Tomosynthesis was used in this interpretation. COMPARISON FILM: 11/04/22, 09/25/18. FINDINGS: The breasts are heterogeneously dense, which may obscure small masses. IMPRESSION: There is no radiographic evidence for malignancy. ASSESSMENT: BI-RADS Category 2: Benign RECOMMENDATION: Routine screening mammogram in 1 year. A lay language report of this examination will be provided to the patient. Stef Barfield M.D. Diagnostic Radiologist [email or web address] DSM/sp R& Transcribed: 4:03 p.m. SP/Dictated by: Stef Brafield MD @ 01/18/2024 11:53:00 AM Signed by:?Stef Barfield MD @01/18/2024 4:13:02 PM (Electronic Signature)
== END 2024-01-17 18:07 | disposition home or self-care (01) ==
LOC: MAMMO 18:06
PROVIDERS: PCP Family Medicine; Visit Provider Family Medicine
DX: Z12.31 Encounter for screening mammogram for malignant neoplasm of breast (principal); R92.2 Inconclusive mammogram
CPT/HCPCS: 77063; 77067

== ENCOUNTER 2024-12-27 15:04 | Outpatient (CLI) | payer BC, SELFPAY | END 2024-12-27 15:05 | disposition home or self-care (01) | PROVIDERS: PCP Family Medicine; Visit Provider Family Medicine | DX: R79.89 Other specified abnormal findings of blood chemistry (principal); E78.5 Hyperlipidemia, unspecified; E66.9 Obesity, unspecified; R73.9 Hyperglycemia, unspecified; I10 Essential (primary) hypertension | CPT/HCPCS: 80053; 80061; 82043; 82570; 84443 ==

== ENCOUNTER 2025-10-28 16:04 | Outpatient (CLI) | payer BC, SELFPAY ==
--- NOTE | 2025-11-13 13:54 | W.PM.SLEEP ---
Sleep Study Details Details Interpreting Provider: Aditi Date of Sleep Study: 10/28/25 Sleep Study Details: STUDY TYPE:? Home unattended ? BMI:? 41.56 ORDERING PROVIDER:? Aditi INDICATION:? Concern for sleep apnea, AFib ? SLEEP SUMMARY:? 392 minutes monitored RESPIRATORY SUMMARY:? AHI 63.8 Low oxygen 74 26.7% of study oxygen less than 90% Snoring 99% PERIODIC LIMB MOVEMENTS OF SLEEP:? Not recorded CARDIAC:? Range 55-84, mean 65.7 beats per minute IMPRESSION:? Severe obstructive sleep apnea, elevated BMI RECOMMENDATION: Weight loss is recommended. CPAP AutoSet pressure 5-17.
== END 2025-10-28 16:05 | disposition home or self-care (01) ==
LOC: SLEEP 16:04
PROVIDERS: PCP Family Medicine; Visit Provider Otolaryngology
DX: G47.33 Obstructive sleep apnea (adult) (pediatric) (principal)
CPT/HCPCS: 95806